=== PATIENT | female | born 1990 | race Caucasian/White ===

== ENCOUNTER 2024-02-04 16:10 | Inpatient (IN) | payer OTHER ==
--- NOTE | 2024-02-04 16:29 | ED ---
Overdose HPI <Marcos Null - Last Filed: 02/04/24 16:29> - General Source: RN notes reviewed, old records reviewed <Marcos Menjivar - Last Filed: 02/04/24 20:13> - General Stated Complaint: Overdose Time Seen by Provider: 02/04/24 16:26 - History of Present Illness Initial Comments: This is a 34-year-old female who presents to the emergency department from [facility]. Patient stated she did fentanyl and Xanax this morning and then went to [place]. Patient was given Narcan earlier this morning at 5 AM and then since she has been withdrawing quite heavily and vomiting and twitching all over the bed so they sent her to the emergency department. Patient states she has been unable to stop vomiting. Patient states she is feeling very twitchy and cannot stop moving because she thinks she is withdrawing. Patient denies any fevers chills cough. Patient denies any chest pain or abdominal pain patient [place] any shortness of breath. (Marcos Menjivar) - Related Data Allergies Allergy/AdvReac Type Severity Reaction Status Date / Time No Known Allergies Allergy Verified 02/04/24 16:31 Review of Systems ROS Other: All systems not noted in ROS Statement are negative. <Marcos Null - Last Filed: 02/04/24 16:29> ROS Other: All systems not noted in ROS Statement are negative. <Marcos Menjivar - Last Filed: 02/04/24 20:13> ROS Statement: Those systems with pertinent positive or pertinent negative responses have been documented in the HPI. General Exam <Marcos Menjivar - Last Filed: 02/04/24 20:13> - General Exam Comments Initial Comments: GENERAL: Patient is well-developed and well-nourished. Patient is nontoxic and well- hydrated and is in moderate distress. Patient is diaphoretic ENT: Neck is soft and supple. No significant lymphadenopathy is noted. Oropharynx is clear. Moist mucous membranes. Neck has full range of motion without eliciting any pain. EYES: The sclera were anicteric and conjunctiva were pink and moist. Extraocular movements were intact and pupils were equal round and reactive to light. Eyelids were unremarkable. PULMONARY: Unlabored respirations. Good breath sounds bilaterally. No audible rales rhonchi or wheezing was noted. CARDIOVASCULAR: There is a regular rate and rhythm without any murmurs gallops or rubs. ABDOMEN: Soft and nontender with normal bowel sounds. SKIN: Skin is clear with no lesions or rashes and otherwise unremarkable. NEUROLOGIC: Patient is alert and oriented x3. Patient is twitching all over the bed and is unable to sit still. Cranial nerves II through XII are grossly intact. Motor and sensory are also intact. Normal speech, volume and content. Symmetrical sm ile. MUSCULOSKELETAL: Normal extremities with adequate strength and full range of motion. LYMPHATICS: No significant lymphadenopathy is noted PSYCHIATRIC: Normal psychiatric evaluation. (Marcos Menjivar) Course Vital Signs 02/04/24 02/04/24 16:28 18:31 Temperature 97.4 F L Pulse Rate 68 66 Respiratory 18 22 Rate Blood Pressure 138/77 155/104 O2 Sat by Pulse 99 96 Oximetry Medical Decision Making - Lab Data Result diagrams: 02/04/24 17:42 02/04/24 17:42 <Marcos Menjivar - Last Filed: 02/04/24 20:13> - Medical Decision Making EKG is interpreted by myself. EKG shows sinus bradycardia 57 bpm VT interval 139 QRS is 98 QT interval is 470 QTc is 464 per patient EKG shows no ST segment elevation or depression Was pt. sent in by a medical professional or institution ([facility] Serrano, [facility] [facility], urgent care, hospital, or long-term...) When possible be specific @ -Patient was sent in by [facility] Did you speak to anyone other than the patient for history (EMS, parent, family, police, friend...)? What history was obtained from this source @ -No Did you review nursing and triage notes (agree or disagree)? Why? @ -I reviewed and agree with nursing and triage notes Were old charts reviewed (outside hosp., previous admission, EMS record, old EKG, old radiological studies, urgent care reports/EKG's, long-term records)? Report findings @ -No old charts were reviewed Differential Diagnosis (chest pain, altered mental status, abdominal pain women, abdominal pain men, vaginal bleeding, weakness, fever, dyspnea, syncope, headache, dizziness, GI bleed, back pain, seizure, CVA, palpatations, mental health, musculoskeletal)? @ -Opiate withdrawal, Xanax withdrawal, alcohol withdrawal, acetaminophen toxicity, aspirin toxicity, this is not an all-inclusive list EKG interpreted by me (3pts min.). @ -As above X-rays interpreted by me (1pt min.). @ -None done CT interpreted by me (1pt min.). @ -CT of the brain shows no acute abnormality U/S interpreted by me (1pt. min.). @ -None done What testing was considered but not performed or refused? (CT, X-rays, U/S, labs)? Why? @ -None What meds were considered but not given or refused? Why? @ -None Did you discuss the management of the patient with other professionals (professionals i.e. , PA, [employer], lab, RT, psych nurse, dialysis social worker, senior quality assurance specialist, teacher, supervisor dog license officer, rn case manager hospice)? Give summary @ -I spoke with sound physicians they agreed admit the patient Was smoking cessation discussed for >3mins.? @ -No Was critical care preformed (if so, how long)? @ -No Were there social determinants of health that impacted care today? How? (Homelessness, low income, unemployed, alcoholism, drug addiction, transportation, low edu. Level, literacy, decrease access to med. care, senior care, rehab)? @ -No Was there de-escalation of care discussed even if they declined (Discuss DNR or withdrawal of care, Hospice)? DNR status @ -No What co-morbidities impacted this encounter? (DM, HTN, Smoking, COPD, CAD, Canc er, CVA, ARF, Chemo, Hep., AIDS, mental health diagnosis, sleep apnea, morbid obesity)? @ -None Was patient admitted / discharged? Hospital course, mention meds given and route, prescriptions, significant lab abnormalities, going to OR and other pertinent info. @ -Patient was given IV and a liter half of fluids. Patient was also given Zofran and Ativan she felt much better she stopped vomiting and she was resting comfortably. Patient was arousable when I went back into the room to discuss results patient was feeling much better. I spoke with sound physicians they agreed to admit the patient. Lab work was normal x-rays and CTs were normal patient will be admitted Undiagnosed new problem with uncertain prognosis? @ -No Drug Therapy requiring intensive monitoring for toxicity (Heparin, Nitro, Insulin, Cardizem)? @ -No Were any procedures done? @ -No Diagnosis/symptom? @ -Opiate withdrawal Acute, or Chronic, or Acute on Chronic? @ -Acute Uncomplicated (without systemic symptoms) or Complicated (systemic symptoms)? @ -Complicated Side effects of treatment? @ -No Exacerbation, Progression, or Severe Exacerbation? @ -No Poses a threat to life or bodily function? How? (Chest pain, [place], [place], pneumonia, PE, COPD, DKA, ARF, appy, cholecystitis, CVA, Diverticulitis, Homicidal, Suicidal, threat to staff... and all critical care pts) @ -Yes patient can have significant withdrawal symptoms leading to dehydration acidosis morbidity and mortality. (Marcos Menjivar) - Lab Data Lab Results 02/04/24 02/04/24 02/04/24 Range/Units 17:42 17:42 17:42 WBC 9.1 (3.8-10.6) k/uL RBC 5.27 (3.80-5.40) m/uL Hgb 16.2 H (11.4-16.0) gm/dL Hct 50.1 H (34.0-46.0) % MCV 95.1 (80.0-100.0) fL MCH 30.7 (25.0-35.0) pg MCHC 32.2 (31.0-37.0) g/dL RDW 12.3 (11.5-15.5) % Plt Count 331 (150-450) k/uL MPV 7.7 Neutrophils % 52 % Lymphocytes % 37 % Monocytes % 4 % Eosinophils % 3 % Basophils % 1 % Neutrophils # 4.7 (1.3-7.7) k/uL Lymphocytes # 3.3 (1.0-4.8) k/uL Monocytes # 0.4 (0-1.0) k/uL Eosinophils # 0.3 (0-0.7) k/uL Basophils # 0.1 (0-0.2) k/uL Sodium 137 (137-145) mmol/L Potassium 3.6 (3.5-5.1) mmol/L Chloride 103 (98-107) mmol/L Carbon Dioxide 24 (22-30) mmol/L Anion Gap 10 mmol/L BUN 17 (7-17) mg/dL Creatinine 0.58 (0.52-1.04) mg/dL Est GFR (CKD-EPI)AfAm >90 (>60 ml/min/1.73 sqM) Est GFR (CKD-EPI)NonAf >90 (>60 ml/min/1.73 sqM) Glucose 89 (74-99) mg/dL Plasma Lactic Acid Sarabjit 1.4 (0.7-2.0) mmol/L Calcium 9.9 (8.4-10.2) mg/dL Magnesium 2.2 (1.6-2.3) mg/dL Total Bilirubin 0.5 (0.2-1.3) mg/dL AST 25 (14-36) U/L ALT 28 (4-34) U/L Alkaline Phosphatase 70 (38-126) U/L Total Protein 8.0 (6.3-8.2) g/dL Albumin 4.6 (3.5-5.0) g/dL Salicylates <1.0 mg/dL Acetaminophen <10.0 ug/mL Serum Alcohol <10 mg/dL Disposition <Marcos Null - Last Filed: 02/04/24 16:29> Time of Disposition: 20:04 <Marcos Menjivar - Last Filed: 02/04/24 20:13> Clinical Impression: Opiate withdrawal Disposition: ADMITTED IP TO THIS HOSP Referrals: None,Stated [Primary Care Provider] - 1-2 days
[2024-02-04 17:57] LABS: Basophils # (A) 0.1 k/uL (0-0.2); Basophils % (A) 1 %; Eosinophils # (A) 0.3 k/uL (0-0.7); Eosinophils % (A) 3 %; HCT 50.1 % (34.0-46.0); HGB 16.2 gm/dL (11.4-16.0); Lymphocytes # (A) 3.3 k/uL (1.0-4.8); Lymphocytes % (A) 37 %; MCH 30.7 pg (25.0-35.0); MCHC 32.2 g/dL (31.0-37.0); MCV 95.1 fL (80.0-100.0); Mean Platelet Volume 7.7; Monocytes # (A) 0.4 k/uL (0-1.0); Monocytes % (A) 4 %; Neutrophils # (A) 4.7 k/uL (1.3-7.7); Neutrophils % (A) 52 %; Platelet Count 331 k/uL (150-450); RBC 5.27 m/uL (3.80-5.40); RDW 12.3 % (11.5-15.5); WBC 9.1 k/uL (3.8-10.6)
[2024-02-04] MEDS: SODIUM CHLORIDE 0.9% 1,000 ML IV ONE ×2 (18:22→20:28)
[2024-02-04 18:24] LABS: ALT 28 U/L (4-34); AST 25 U/L (14-36); Acetaminophen <10.0 ug/mL; African American GFR (CKD) >90 (>60 ml/min/1.73 sqM); Albumin 4.6 g/dL (3.5-5.0); Alcohol <10 mg/dL; Alkaline Phosphatase 70 U/L (38-126); Anion Gap 10 mmol/L; Blood Urea Nitrogen 17 mg/dL (7-17); Calcium 9.9 mg/dL (8.4-10.2); Carbon Dioxide 24 mmol/L (22-30); Chloride 103 mmol/L (98-107); Glucose 89 mg/dL (74-99); Magnesium 2.2 mg/dL (1.6-2.3); Non-African American GFR(CKD) >90 (>60 ml/min/1.73 sqM); Potassium 3.6 mmol/L (3.5-5.1); Salicylate <1.0 mg/dL; Sodium 137 mmol/L (137-145); Total Bilirubin 0.5 mg/dL (0.2-1.3)
[2024-02-04] MEDS: SODIUM CHLORIDE 0.9% 500 ML 500 ML IV ONE (18:25)
[2024-02-04] MEDS: LORazepam 2 MG/ML INJ IV STA (18:25)
[2024-02-04] MEDS: ONDANSETRON 4 MG/2 ML VIAL IVP STA (18:25)
[2024-02-04] MEDS ORDERED: LORazepam 2 MG/ML INJ IV PRN (20:19)
--- NOTE | 2024-02-05 07:30 | P.HPIM ---
History of Present Illness H&P Date: 02/04/24 Chief Complaint: Withdrawal symptoms 34-year-old female with history of drug abuse Patient is not providing any history she follows commands, she is awake but she does not volunteer any information. History was obtained by reviewing ER medical records and discussing the case with the ED physicians Patient was sent in here from [place] where she presented this morning after she did some fentanyl and Xanax, patient was given some Narcan early in the morning today after which she started to have severe withdrawal symptoms manifested as nausea and repeated vomiting with twitches all over her body for which they sent her in here for evaluation due to refractory vomiting At time of my evaluation patient seems to be laying down comfortably in bed however she refuses to open eyes does not make any eye contact does not say any words does not answer any questions however follows all commands and cooperate with exam ED documented that patient denies any fevers or chills or upper respiratory infection symptoms denies any abdominal pain or chest pain review of systems Unable to obtain patient does not answer any of my questions on exam Constitutional: No acute distress, laying down in bed comfortably, patient is not having any twitches at time of my evaluation Eyes: Anicteric sclerae, moist conjunctiva, Pupils equal round reactive to light ENMT: NC/AT Oropharynx clear, no erythema, or exudates Neck: Supple, no masses, or JVD No carotid bruits No thyromegaly Lungs: Clear to auscultation Clear to percussion Normal respiratory effort, no accessory muscle use Cardiovascular: Heart regular in rate and rhythm, No murmurs, gallops, or rubs No peripheral edema Abdominal: Soft Nontender, no guarding, rebound or rigidity Abdomen moving with respiration Normoactive bowel sounds Extremities: No digital cyanosis No clubbing Pedal pulses intact and symmetrical Radial pulses intact and symmetrical No calf tenderness Psychiatric: Patient does not answer any questions does not open eyes however she follows all commands Neuro patient moving all 4 extremities spontaneously and to command otherwise does not cooperate with neuroexam Past Medical History Past Medical History: No Reported History History of Any Multi-Drug Resistant Organisms: None Reported Past Surgical History: No Surgical Hx Reported Past Psychological History: Anxiety Smoking Status: Current every day smoker Past Alcohol Use History: Occasional Past Drug Use History: Heroin Medications and Allergies Home Medications Medication Instructions Recorded Confirmed Type Unable To Assess [Unable to Assess] 02/04/24 02/04/24 History Allergies Allergy/AdvReac Type Severity Reaction Status Date / Time No Known Allergies Allergy Verified 02/04/24 16:31 Physical Exam Vitals: Vital Signs Temp Pulse Resp BP Pulse Ox 02/05/24 06:35 60 18 105/60 99 02/05/24 05:06 59 L 16 113/70 99 02/05/24 02:00 58 L 15 122/78 100 02/05/24 01:00 56 L 14 133/86 100 02/05/24 00:28 57 L 18 133/86 99 02/05/24 00:00 60 14 122/82 99 02/04/24 23:00 56 L 13 109/69 99 02/04/24 22:38 58 L 16 108/69 98 02/04/24 22:00 59 L 15 112/72 98 02/04/24 21:00 61 18 123/82 97 02/04/24 20:32 65 16 123/82 97 02/04/24 20:00 64 24 160/104 99 02/04/24 19:00 66 28 H 100 02/04/24 18:31 66 22 155/104 96 02/04/24 18:01 64 28 H 02/04/24 16:28 97.4 F L 68 18 138/77 99 Intake and Output 02/04/24 02/05/24 02/05/24 22:59 06:59 14:59 Other: Weight 58.967 kg Results CBC & Chem 7: 02/04/24 17:42 02/04/24 17:42 Labs: Abnormal Lab Results - Last 24 Hours (Table) 02/04/24 Range/Units 17:42 Hgb 16.2 H (11.4-16.0) gm/dL Hct 50.1 H (34.0-46.0) % Assessment and Plan Assessment: 34-year-old female with no significant past medical history except for polysubstance abuse presented to our facility from [place] due to repeated nausea vomiting suspected to be secondary to withdrawal symptoms I discussed the case with ED doctor and accepted the admission for polysubstance abuse with severe withdrawal symptoms with anticipated length of stay less than 2 midnights Polysubstance abuse with severe withdrawal symptoms Serum alcohol, salicylate, and acetaminophen all negative Complete metabolic panel unremarkable sodium 137 potassium 3.6 BUN 17 creatinine 0.5 Liver enzymes unremarkable total bili 0.5 AST 25 ALT 28 alk phos 70 White count 9.1 afebrile Symptomatic control of nausea vomiting with Zofran 4 mg IV push every 8 hours as needed Benzos per CIWA As needed Ativan 1 mg every 4 hours for agitation Status post 2 L normal saline continue with 75 cc/h Urine drug screen is pending EKG shows sinus bradycardia Full code DVT prophylaxis heparin subcu 3 times daily
[2024-02-05] MEDS ORDERED: LORazepam 1 MG TAB PO PRN ×3 (07:32)
[2024-02-05] MEDS ORDERED: ONDANSETRON 4 MG/2 ML VIAL IVP PRN (07:32)
[2024-02-05] MEDS ORDERED: LORazepam 0.5 MG TAB PO PRN (07:32)
[2024-02-05] MEDS: PANTOPRAZOLE 40 MG TABLET PO SCH (08:19)
[2024-02-05] MEDS: HEPARIN SODIUM,PORCINE 5,000 UNIT/ML 1 ML VIAL SQ SCH (08:19)
[2024-02-05 08:52] VITALS: TEMP 98
[2024-02-05 11:43] VITALS: BP 140/68; PULSE 68; RESP 20
--- NOTE | 2024-02-05 15:28 | P.DS ---
Providers Date of admission: 02/04/24 20:19 Expected date of discharge: 02/05/24 Attending physician: Toby Pablo MD Primary care physician: Stated None Hospital Course: Discharge Diagnosis: Intractable nausea and vomiting secondary to opiate withdrawal Polysubstance abuse Dyslipidemia Migraine headaches Hospital Course: Patient is a 34-year-old female with history of migraine headaches, dyslipidemi a, and opiate use disorder who presented from [place] due to opiate withdrawal. She had been treated with Narcan and then had been having had a vomiting and twitching and was therefore sent to the emergency department. On arrival to the ER vital signs are within normal limits. Initial laboratory analysis was remarkable for hemoglobin of 16. Salicylates, alcohol, and acetaminophen medical levels were normal. She required 1 dose of Zofran in the emergency department. She was observed overnight. Her nausea and vomiting remained abated. She was up and walking in the hallways without difficulties. She was eating and drinking well. She was determined stable to go back to [place]. Patient seen and examined at bedside. Feeling tired. No other complaint currently. No other nausea or vomiting. Ate breakfast. Has been walking to and from the bathroom without difficulty. Vital signs reviewed and stable. General: Nontoxic, no distress, appears at stated age Cardiovascular: S1S2 reg, no murmur, positive posterior tibial pulse bilateral, Lungs: CTA bilateral, no rhonchi, no rales, no accessory muscle use Abdominal: Soft, nontender to palpation, no guarding, no appreciable organomegaly Ext: No gross muscle atrophy, no edema b/l lower extremities, no contractures Neuro: CN II-XI grossly intact, no focal neuro deficits Psych: Alert, oriented, appropriate affect A total of 20 minutes of time were spent preparing this complex discharge summary. Patient was discharged on 02/05/24. This dictation was prepared using [employer] voice recognition software. Though every attempt is made to correct errors during dictation some may still exist. Plan - Discharge Summary New Discharge Prescriptions: No Action Omeprazole [PriLOSEC] 20 mg PO DAILY Albuterol Sulfate [Albuterol Sulfate Hfa] 1 puff INHALATION RT-BID PRN PRN Reason: Shortness Of Breath Naloxone HCl [Narcan] 4 mg NASAL DIRECTED PRN PRN Reason: Opioid Reversal Ibuprofen [Motrin] 800 mg PO DAILY HYDROcodone/APAP 7.5-325MG [[place] 7.5-325] 1 tab PO BID Ferrous Sulfate [Feosol] 325 mg PO DAILY Cephalexin [Keflex] 500 mg PO DIRECTED Vilazodone HCl [Viibryd] 40 mg PO DAILY tiZANidine [Zanaflex] 4 mg PO DAILY PRN PRN Reason: Muscle Spasm SUMAtriptan succinate [Imitrex] 100 mg PO DAILY PRN PRN Reason: Migraine Headache QUEtiapine [SEROquel] 100 mg PO HS Gabapentin 800 mg PO BID Fenofibrate Nanocrystallized [Fenofibrate] 145 mg PO DAILY cloNIDine HCL 0.1 mg PO BID Cholecalciferol (Vitamin D3) [Vitamin D3 (1250 Mcg = 50,000 Iu)] 1,250 mcg PO Q7D ALPRAZolam [Xanax] 0.5 mg PO BID Acyclovir [Zovirax] 400 mg PO DAILY Methadone HCl [Methadone Intensol] 77 mg PO DAILY Discharge Medication List ALPRAZolam [Xanax] 0.5 mg PO BID 02/05/24 [History] Acyclovir [Zovirax] 400 mg PO DAILY 02/05/24 [History] Albuterol Sulfate [Albuterol Sulfate Hfa] 1 puff INHALATION RT-BID PRN 02/05/24 [History] Cephalexin [Keflex] 500 mg PO DIRECTED 02/05/24 [History] Cholecalciferol (Vitamin D3) [Vitamin D3 (1250 Mcg = 50,000 Iu)] 1,250 mcg PO Q7D 02/05/24 [History] Fenofibrate Nanocrystallized [Fenofibrate] 145 mg PO DAILY 02/05/24 [History] Ferrous Sulfate [Feosol] 325 mg PO DAILY 02/05/24 [History] Gabapentin 800 mg PO BID 02/05/24 [History] HYDROcodone/APAP 7.5-325MG [[place] 7.5-325] 1 tab PO BID 02/05/24 [History] Ibuprofen [Motrin] 800 mg PO DAILY 02/05/24 [History] Methadone HCl [Methadone Intensol] 77 mg PO DAILY 02/05/24 [History] Naloxone HCl [Narcan] 4 mg NASAL DIRECTED PRN 02/05/24 [History] Omeprazole [PriLOSEC] 20 mg PO DAILY 02/05/24 [History] QUEtiapine [SEROquel] 100 mg PO HS 02/05/24 [History] SUMAtriptan succinate [Imitrex] 100 mg PO DAILY PRN 02/05/24 [History] Vilazodone HCl [Viibryd] 40 mg PO DAILY 02/05/24 [History] cloNIDine HCL 0.1 mg PO BID 02/05/24 [History] tiZANidine [Zanaflex] 4 mg PO DAILY PRN 02/05/24 [History] Follow up Appointment(s)/Referral(s): None,Stated [Primary Care Provider] - 1-2 days Activity/Diet/Wound Care/Special Instructions: Activity: As tolerated Diet: Regular Special Instructions: Follow-up with your primary doctor in 2-3 days Abstain from illicit drugs and alcohol Discharge/Stand Alone Forms: Outpatient Counseling, In Substance Abuse Facilities Discharge Disposition: HOME SELF-CARE
[2024-02-06] MEDS ORDERED: THIAMINE 100 MG TAB PO SCH (09:00)
== END 2024-02-05 11:43 | disposition home or self-care (01) | DRG 773 ==
LOC: EC 16:10 → 4SSUR 20:19 → 3SCARD 22:33
PROVIDERS: ADMIT Internal Medicine; ATTEND Internal Medicine
DX: F11.23 Opioid dependence with withdrawal (principal); E78.5 Hyperlipidemia, unspecified; G43.909 Migraine, unspecified, not intractable, without status migrainosus
CPT/HCPCS: 36415; 80053; 80143; 80179; 80320; 83605; 83735; 85025; 93005; 96361; 96372; 96374; 96375; 99285